=== PATIENT | female | born 1990 | race Caucasian/White ===

== ENCOUNTER 2021-02-03 01:40 | Emergency (ER) | payer MEDICAID ==
[~2021-02-03] VITALS: Ht 160 cm; Wt 66.0 kg
[2021-02-03 01:47] VITALS: BP 104/63
== END 2021-02-03 02:24 | disposition left against medical advice (07) ==
LOC: ER 01:40
DX: Z53.21 Procedure and treatment not carried out due to patient leaving prior to being seen by health care provider (principal)

== ENCOUNTER 2021-02-09 03:51 | Emergency (ER) | payer MEDICAID ==
[~2021-02-09] VITALS: Ht 160 cm; Wt 71.0 kg
[2021-02-09 04:47] LABS: CLARITY URINE CLEAR (CLEAR); COLOR URINE YELLOW (YELLOW); KETONES URINE NEGATIVE (NEGATIVE); LEUKOCYTE ESTERASE URINE 1+ (NEGATIVE); NITRITE URINE NEGATIVE (NEGATIVE); OCCULT BLOOD URINE NEGATIVE (NEGATIVE); PROTEIN URINE NEGATIVE (NEGATIVE); SPECIFIC GRAVITY URINE 1.023 (1.005-1.030); UROBILINOGEN URINE 0.2 E.U./dL (0.2-1.0)
[2021-02-09] MEDS ORDERED: NITR-87 MT (05:06)
[2021-02-09 05:11] VITALS: BP 112/72
== END 2021-02-09 05:13 | disposition home or self-care (01) ==
LOC: ER 03:51
DX: N39.0 Urinary tract infection, site not specified (principal); Z98.890 Other specified postprocedural states
CPT/HCPCS: 81003; 81025; 99283

== ENCOUNTER 2021-07-06 04:05 | Emergency (ER) | payer SELFPAY ==
[~2021-07-06] VITALS: Ht 160 cm; Wt 62.0 kg
[~2021-07-06 04:05] MED LIST: NITR-87 MT
[2021-07-06 05:09] LABS: BASOPHILS % 0.6 % (0.0-2.0); EOSINOPHILS % 0.8 % (0.0-5.0); HEMATOCRIT. 27.5 % (36.0-48.0); HEMOGLOBIN. 8.4 g/dL (12.0-16.0); LYMPHOCYTES % 27.2 % (20.0-50.0); MEAN CORPUSCULAR HEMOGLOBIN 20.8 pg (28.0-32.0); MEAN CORPUSCULAR VOLUME 68.3 fL (81.0-99.0); MEAN PLATELET VOLUME 7.8 fl (7.4-10.4); MONOCYTES % 5.9 % (2.0-8.0); NEUTROPHILS % 65.5 % (40.0-76.0); PLATELET 276 x1000/uL (130-400); RED BLOOD CELL COUNT 4.03 mill/uL (4.2-5.4); RED CELL DISTRIBUTION WIDTH 18.8 % (11.6-14.6)
[2021-07-06 05:12] LABS: PLATELET ESTIMATE NORMAL
[2021-07-06 05:13] LABS: CHLORIDE 106 mEq/L (98-107)
[2021-07-06 05:17] LABS: ETHANOL BLOOD < 10 mg/dL
[2021-07-06 05:50] LABS: CLARITY URINE CLEAR (CLEAR); COLOR URINE YELLOW (YELLOW); KETONES URINE NEGATIVE (NEGATIVE); LEUKOCYTE ESTERASE URINE 1+ (NEGATIVE); NITRITE URINE NEGATIVE (NEGATIVE); OCCULT BLOOD URINE 2+ (NEGATIVE); PH URINE 6.5 (4.5-8.0); PROTEIN URINE NEGATIVE (NEGATIVE); UROBILINOGEN URINE 0.2 E.U./dL (0.2-1.0)
[2021-07-06 06:05] LABS: *BARBITURATES SCREEN URINE NEGATIVE (NEGATIVE); *BENZODIAZEPINES SCREEN URINE NEGATIVE (NEGATIVE); *COCAINE SCREEN URINE NEGATIVE (NEGATIVE); METHADONE URINE SCREEN NEGATIVE (NEGATIVE)
[2021-07-06 06:07] LABS: CANNABINOID URINE SCREEN NEGATIVE (NEGATIVE); PHENCYCLIDINE URINE SCREEN NEGATIVE (NEGATIVE)
[2021-07-06 06:32] LABS: *AMPHETAMINES SCREEN URINE PRESUMTIVE POSITIVE (NEGATIVE); OPIATES URINE SCREEN PRESUMTIVE POSITIVE (NEGATIVE)
[2021-07-06] MEDS ORDERED: NITROFURANTOIN 100MG M/M CAPSULE PO SCH (09:00)
[2021-07-06 10:00] VITALS: BP 107/62
[2021-07-06] MEDS ORDERED: QUET100T MT (11:11)
[2021-07-06] MEDS ORDERED: BUPR-102 MT (11:11)
== END 2021-07-06 11:44 | disposition home or self-care (01) ==
LOC: ER 04:05
DX: R45.851 Suicidal ideations (principal); D50.9 Iron deficiency anemia, unspecified; N39.0 Urinary tract infection, site not specified; F32.9 Major depressive disorder, single episode, unspecified; Z98.890 Other specified postprocedural states; Z79.899 Other long term (current) drug therapy; Z20.822 Contact with and (suspected) exposure to COVID-19
CPT/HCPCS: 36415; 80053; 80305; 80307; 80320; 80329; 81003; 81025; 85025; 87426; 99284; G0480

== ENCOUNTER 2021-07-28 00:58 | Emergency (ER) | payer SELFPAY ==
[~2021-07-28] VITALS: Ht 162.6 cm; Wt 61.0 kg
[~2021-07-28 00:58] MED LIST changes: +BUPR-102 MT; +QUET100T MT
[2021-07-28 02:33] LABS: HEMATOCRIT. 26.6 % (36.0-48.0); HEMOGLOBIN. 8.3 g/dL (12.0-16.0); MEAN CORPUSCULAR HEMOGLOBIN 21.7 pg (28.0-32.0); MEAN CORPUSCULAR VOLUME 69.2 fL (81.0-99.0); MEAN PLATELET VOLUME 8.2 fl (7.4-10.4); PLATELET 319 x1000/uL (130-400); RED BLOOD CELL COUNT 3.84 mill/uL (4.2-5.4); RED CELL DISTRIBUTION WIDTH 18.7 % (11.6-14.6)
[2021-07-28 02:36] LABS: PLATELET ESTIMATE NORMAL
[2021-07-28 02:40] LABS: CHLORIDE 104 mEq/L (98-107)
[2021-07-28 02:44] LABS: ETHANOL BLOOD < 10 mg/dL
[2021-07-28 15:37] VITALS: BP 98/55
[2021-07-28] MEDS ORDERED: ARIPIPRAZOLE 5MG TABLET PO SCH (17:00)
== END 2021-07-28 15:51 | disposition home or self-care (01) ==
LOC: ER 00:58
DX: F31.5 Bipolar disorder, current episode depressed, severe, with psychotic features (principal); R45.851 Suicidal ideations; F15.10 Other stimulant abuse, uncomplicated; F11.10 Opioid abuse, uncomplicated; D64.9 Anemia, unspecified; Z20.822 Contact with and (suspected) exposure to COVID-19; Z59.00 Homelessness unspecified; Z71.51 Drug abuse counseling and surveillance of drug abuser
CPT/HCPCS: 36415; 80053; 80307; 80320; 80329; 82140; 82962; 83690; 84443; 85025; 99285; C9803; U0003; U0005; G0480

== ENCOUNTER 2021-09-04 23:21 | Emergency (ER) | payer SELFPAY ==
[~2021-09-04] VITALS: Ht 162.6 cm; Wt 62.0 kg
[2021-09-04 23:58] VITALS: BP 115/70
== END 2021-09-05 02:01 | disposition left against medical advice (07) ==
LOC: ER 23:21
DX: Z53.21 Procedure and treatment not carried out due to patient leaving prior to being seen by health care provider (principal)

== ENCOUNTER 2021-10-14 21:41 | Emergency (ER) | payer SELFPAY ==
[~2021-10-14] VITALS: Ht 160 cm; Wt 63.4 kg
[2021-10-14 22:27] LABS: CLARITY URINE CLOUDY (CLEAR); COLOR URINE YELLOW (YELLOW); KETONES URINE NEGATIVE (NEGATIVE); LEUKOCYTE ESTERASE URINE NEGATIVE (NEGATIVE); NITRITE URINE POSITIVE (NEGATIVE); OCCULT BLOOD URINE NEGATIVE (NEGATIVE); PH URINE 5.5 (4.5-8.0); PROTEIN URINE NEGATIVE (NEGATIVE); SPECIFIC GRAVITY URINE 1.024 (1.005-1.030); UROBILINOGEN URINE 0.2 E.U./dL (0.2-1.0)
[2021-10-14 22:37] LABS: *BENZODIAZEPINES SCREEN URINE NEGATIVE (NEGATIVE); *COCAINE SCREEN URINE NEGATIVE (NEGATIVE)
[2021-10-14 22:38] LABS: *AMPHETAMINES SCREEN URINE PRESUMTIVE POSITIVE (NEGATIVE); CANNABINOID URINE SCREEN NEGATIVE (NEGATIVE); OPIATES URINE SCREEN PRESUMTIVE POSITIVE (NEGATIVE); PHENCYCLIDINE URINE SCREEN NEGATIVE (NEGATIVE)
[2021-10-14] MEDS ORDERED: ACETAMINOPHEN 325MG TABLET PO ONE (22:45)
[2021-10-14 23:25] LABS: BASOPHILS % 0.6 % (0.0-2.0); EOSINOPHILS % 1.8 % (0.0-5.0); HEMATOCRIT. 31.1 % (36.0-48.0); HEMOGLOBIN. 9.7 g/dL (12.0-16.0); LYMPHOCYTES % 47.3 % (20.0-50.0); MEAN CORPUSCULAR HEMOGLOBIN 23.5 pg (28.0-32.0); MEAN CORPUSCULAR VOLUME 74.9 fL (81.0-99.0); MEAN PLATELET VOLUME 8.8 fl (7.4-10.4); MONOCYTES % 5.8 % (2.0-8.0); NEUTROPHILS % 44.5 % (40.0-76.0); PLATELET 269 x1000/uL (130-400); RED BLOOD CELL COUNT 4.15 mill/uL (4.2-5.4); RED CELL DISTRIBUTION WIDTH 19.5 % (11.6-14.6)
[2021-10-14 23:38] LABS: CHLORIDE 104 mEq/L (98-107)
[2021-10-14 23:42] LABS: ETHANOL BLOOD < 10 mg/dL
[2021-10-15] MEDS ORDERED: LIDOCAINE HCL 1% 20ML VIAL (Pyxis) INJ INFIL ONE
[2021-10-15] MEDS ORDERED: DOXYCYCLINE HYCLATE 100MG CAPSULE PO ONE
[2021-10-15] MEDS ORDERED: CEFTRIAXONE SODIUM 500 MG/VIAL IM ONE
[2021-10-15] MEDS ORDERED: LIDOCAINE HCL 1% 10 MG/ML 10ML VIAL IJ SCH (00:15)
[2021-10-15] MEDS ORDERED: DOXY100T2 MT ×2 (01:00)
[2021-10-15] MEDS ORDERED: CEPH500T MT ×2 (01:00)
[2021-10-15] MEDS: BUPROPION HCL 150MG TABLET XL 24HR PO SCH (09:50)
[2021-10-15 14:15] LABS: *BARBITURATES SCREEN URINE NEGATIVE (NEGATIVE); METHADONE URINE SCREEN NEGATIVE (NEGATIVE)
[2021-10-15] MEDS ORDERED: LORAZEPAM 1MG TABLET PO ONE (15:00)
[2021-10-15] MEDS: DOXYCYCLINE HYCLATE 100MG CAPSULE PO SCH (19:10)
[2021-10-15] MEDS: CEPHALEXIN 250MG CAPSULE PO SCH (19:10)
[2021-10-15] MEDS ORDERED: QUETIAPINE FUMARATE 50MG TABLET PO SCH (21:00)
[2021-10-16] MEDS: CEPHALEXIN 250MG CAPSULE PO SCH (11:15)
[2021-10-16] MEDS: DOXYCYCLINE HYCLATE 100MG CAPSULE PO SCH (11:16)
[2021-10-16] MEDS: BUPROPION HCL 150MG TABLET XL 24HR PO SCH (11:38)
[2021-10-16] MEDS ORDERED: DOXY100C5 MT (13:45)
[2021-10-16] MEDS ORDERED: CEPH250C2 MT (13:45)
[2021-10-16 14:00] VITALS: BP 120/66
[2021-10-18 08:11] LABS: NEISSERIA GONORRHOEAE NAA Negative (Negative)
== END 2021-10-16 14:15 | disposition home or self-care (01) ==
LOC: ER 21:41
DX: R45.851 Suicidal ideations (principal); F31.9 Bipolar disorder, unspecified; F15.10 Other stimulant abuse, uncomplicated; N30.00 Acute cystitis without hematuria; F11.10 Opioid abuse, uncomplicated; F41.9 Anxiety disorder, unspecified; Z20.822 Contact with and (suspected) exposure to COVID-19
CPT/HCPCS: 36415; 71045; 80053; 80305; 80307; 80320; 80329; 81003; 83880; 84484; 85025; 87491; 87591; 93005; 96372; 99285; C9803; J0696; J3490; G0480

== ENCOUNTER 2022-03-02 01:21 | Emergency (ER) | payer MEDICAID, OTHER ==
[~2022-03-02] VITALS: Ht 162.6 cm; Wt 61.9 kg
[~2022-03-02 01:21] MED LIST changes: +CEPH250C2 MT; +DOXY100C5 MT
[2022-03-02 02:42] LABS: BASOPHILS % 0.6 % (0.0-2.0); EOSINOPHILS % 1.9 % (0.0-5.0); HEMATOCRIT. 31.8 % (36.0-48.0); HEMOGLOBIN. 10.2 g/dL (12.0-16.0); LYMPHOCYTES % 51.5 % (20.0-50.0); MEAN CORPUSCULAR HEMOGLOBIN 25.2 pg (28.0-32.0); MEAN CORPUSCULAR VOLUME 78.6 fL (81.0-99.0); MEAN PLATELET VOLUME 8.6 fl (7.4-10.4); MONOCYTES % 10.7 % (2.0-8.0); NEUTROPHILS % 35.3 % (40.0-76.0); PLATELET 219 x1000/uL (130-400); RED BLOOD CELL COUNT 4.04 mill/uL (4.2-5.4); RED CELL DISTRIBUTION WIDTH 20.4 % (11.6-14.6)
[2022-03-02 02:50] LABS: CHLORIDE 105 mEq/L (98-107)
[2022-03-02 02:54] LABS: CLARITY URINE TURBID (CLEAR); COLOR URINE YELLOW (YELLOW); KETONES URINE NEGATIVE (NEGATIVE); LEUKOCYTE ESTERASE URINE 2+ (NEGATIVE); NITRITE URINE NEGATIVE (NEGATIVE); OCCULT BLOOD URINE NEGATIVE (NEGATIVE); PROTEIN URINE NEGATIVE (NEGATIVE); SPECIFIC GRAVITY URINE 1.021 (1.005-1.030)
[2022-03-02 02:56] LABS: ETHANOL BLOOD < 10 mg/dL
[2022-03-02 03:30] LABS: *BARBITURATES SCREEN URINE NEGATIVE (NEGATIVE); *BENZODIAZEPINES SCREEN URINE NEGATIVE (NEGATIVE); *COCAINE SCREEN URINE NEGATIVE (NEGATIVE); CANNABINOID URINE SCREEN NEGATIVE (NEGATIVE); METHADONE URINE SCREEN NEGATIVE (NEGATIVE); PHENCYCLIDINE URINE SCREEN NEGATIVE (NEGATIVE)
[2022-03-02 03:39] LABS: *AMPHETAMINES SCREEN URINE PRESUMTIVE POSITIVE (NEGATIVE)
[2022-03-02 03:40] LABS: OPIATES URINE SCREEN PRESUMTIVE POSITIVE (NEGATIVE)
[2022-03-02] MEDS ORDERED: CEPHALEXIN 250MG CAPSULE PO NR (03:45)
[2022-03-02 09:50] VITALS: BP 106/63
[2022-03-02] MEDS ORDERED: BUPROPION HCL 150MG TABLET XL 24HR PO SCH (12:00)
[2022-03-02] MEDS ORDERED: QUETIAPINE FUMARATE 50MG TABLET PO SCH (21:00)
== END 2022-03-02 10:15 | disposition home or self-care (01) ==
LOC: ER 01:21
DX: R45.851 Suicidal ideations (principal); F11.159 Opioid abuse with opioid-induced psychotic disorder, unspecified; F33.3 Major depressive disorder, recurrent, severe with psychotic symptoms; F15.159 Other stimulant abuse with stimulant-induced psychotic disorder, unspecified; F16.159 Hallucinogen abuse with hallucinogen-induced psychotic disorder, unspecified; N39.0 Urinary tract infection, site not specified; Z59.00 Homelessness unspecified; Z91.51 Personal history of suicidal behavior
CPT/HCPCS: 36415; 80053; 80305; 80307; 80320; 80329; 81003; 82962; 85025; 99285; G0480